=== PATIENT | female | born 1990 | race Caucasian/White ===

== ENCOUNTER 2018-02-12 10:11 | Emergency (ER) | payer OTHER ==
[~2018-02-12] VITALS: Ht 172.7 cm; Wt 143.7 kg
[~2018-02-12 10:11] MED LIST: DIPH1TAB36 PO; OXYC-360 PO; PRENTAB62 PO
[2018-02-12 10:18] VITALS: BP 178/81; PULSE 89; RESP 16; TEMP 99.2; O2SAT 100
[2018-02-12] MEDS ORDERED: SODIUM CHLORIDE 0.9% FLUSH 10 ML FLUSH IVF PRN (10:30)
--- NOTE | 2018-02-12 10:30 | PD ---
HPI Chief Complaint: Cardiac Complaint Time Seen by Provider: 10:21 Travel History International Travel<30 days: No Contact w/Intl Traveler<30days: No Traveled to known affect area: No History of Present Illness HPI 27 y/o female presents with palpitation feeling for the past week and a half. She states no chest pain, shortness of breath or other concurrent complaints. She denies recurrent history of this. She denies specific modifying factors. She states she is currently on her menstrual cycle. She states that she just changed her diet to be low-carb to help regulate her cycle. She denies any increased caffeine use but does have a coffee this morning. Quality is fluttering feeling. She states she just got new insurance and has not had a chance to set up a primary doctor yet. Duration is a week and a half. PFSH Past Medical History Diabetes: No Diminished Hearing: No ?: Not LMP: 02/12/18 Past Surgical History Other Surgery: Yes (FIBROMA REMOVED LR [facility].) Social History Alcohol Use: No Tobacco Use: No Substance Use: No Allergies-Medications (Allergen,Severity, Reaction): Coded Allergies: codeine (Unverified Allergy, Severe, 02/12/18) cefazolin (Unverified Allergy, Intermediate, RASH, 02/12/18) Reported Meds & Prescriptions Reported Meds & Active Scripts Active No Active Prescriptions or Reported Medications Review of Systems Except as stated in HPI: all other systems reviewed are Neg Physical Exam Narrative GENERAL: 27-year-old female in no apparent distress SKIN: Focused skin assessment warm/dry. HEAD: Atraumatic. Normocephalic. EYES: Pupils equal and round. No scleral icterus. No injection or drainage. ENT: No nasal bleeding or discharge. Mucous membranes pink and moist. NECK: Trachea midline. No JVD. CARDIOVASCULAR: Regular rate and rhythm. No murmur appreciated. RESPIRATORY: No accessory muscle use. Clear to auscultation. Breath sounds equal bilaterally. MUSCULOSKELETAL: No obvious deformities. No clubbing. No cyanosis. No edema. NEUROLOGICAL: Awake and alert. No obvious cranial nerve deficits. Motor grossly within normal limits. Normal speech. PSYCHIATRIC: Appropriate mood and affect; insight and judgment normal. Data Data Last Documented VS Vital Signs Date Time Temp Pulse Resp B/P (MAP) Pulse Ox O2 Delivery O2 Flow Rate FiO2 02/12/18 10:45 92 02/12/18 10:45 98 Room Air 02/12/18 10:18 99.2 16 178/81 (113) Orders Orders Electrocardiogram (02/12/18 10:24) Basic Metabolic Panel (Bmp) (02/12/18 10:24) Complete Blood Count With Diff (02/12/18 10:24) Magnesium (Mg) (02/12/18 10:24) Ecg Monitoring (02/12/18 10:24) Iv Access Insert/Monitor (02/12/18 10:24) Oximetry (02/12/18 10:24) Sodium Chloride 0.9% Flush (Ns Flush) (02/12/18 10:30) Potassium Chloride Eff (K-Lyte Cl Eff) (02/12/18 11:15) Ed Discharge Order (02/12/18 11:30) Labs Laboratory Tests Test 02/12/18 10:40 White Blood Count 6.4 TH/MM3 Red Blood Count 5.09 MIL/MM3 Hemoglobin 14.6 GM/DL Hematocrit 44.2 % Mean Corpuscular Volume 86.8 FL Mean Corpuscular Hemoglobin 28.6 PG Mean Corpuscular Hemoglobin Concent 32.9 % Red Cell Distribution Width 12.7 % Platelet Count 199 TH/MM3 Mean Platelet Volume 9.4 FL Neutrophils (%) (Auto) 64.2 % Lymphocytes (%) (Auto) 25.6 % Monocytes (%) (Auto) 7.6 % Eosinophils (%) (Auto) 2.0 % Basophils (%) (Auto) 0.6 % Neutrophils # (Auto) 4.2 TH/MM3 Lymphocytes # (Auto) 1.6 TH/MM3 Monocytes # (Auto) 0.5 TH/MM3 Eosinophils # (Auto) 0.1 TH/MM3 Basophils # (Auto) 0.0 TH/MM3 CBC Comment DIFF FINAL Differential Comment Blood Urea Nitrogen 8 MG/DL Creatinine 0.65 MG/DL Random Glucose 91 MG/DL Calcium Level 8.8 MG/DL Magnesium Level 2.0 MG/DL Sodium Level 137 MEQ/L Potassium Level 3.3 MEQ/L Chloride Level 106 MEQ/L Carbon Dioxide Level 22.5 MEQ/L Anion Gap 9 MEQ/L Estimat Glomerular Filtration Rate 109 ML/MIN MDM Medical Decision Making Medical Screen Exam Complete: Yes Emergency Medical Condition: Yes Medical Record Reviewed: Yes (past history confirmed) Interpretation(s) EKG shows NSR, no ST elevation or depression, and no arrhythmias. No significant T-wave inversions. CBC & BMP Diagram 02/12/18 10:40 Calcium Level 8.8, Magnesium Level 2.0 Differential Diagnosis Electrolyte abnormality, SVT, atrial fibrillation Narrative Course Will check blood work, EKG and reevaluate. Patient has mild hypokalemia which was replaced. She recommended patient set up primary care follow-up for additional testing as an outpatient. She is in agreement to this. She denies any new complaints and states that they are feeling better. all questions answered. She knows that follow up is incumbent on them and to return to the emergency room immediately if new or worsening symptoms develop. She was given strict return precautions, vitals reviewed and are normal, agrees to further workup as an outpatient. Diagnosis Primary Impression: Palpitations Additional Impression: Hypokalemia Patient Instructions: General Instructions Additional Instructions: return as needed, follow with primary this week Med/Other Pt SpecificInfo: No Change to Meds Scripts No Active Prescriptions or Reported Meds Disposition: 01 DISCHARGE HOME Condition: Stable Sophy Sharma MD Feb 12, 2018 10:30
[2018-02-12 10:45] VITALS: O2SAT 98
[2018-02-12 10:53] LABS: AUTOMATED NEUTROPHIL # 4.2 TH/MM3 (1.8-7.7); BASOPHIL % 0.6 % (0.0-2.0); EOSINOPHIL # 0.1 TH/MM3 (0-0.4); HEMATOCRIT 44.2 % (35.0-46.0); HEMOGLOBIN 14.6 GM/DL (11.6-15.3); LYMPH % 25.6 % (9.0-44.0); LYMPHOCYTE # 1.6 TH/MM3 (1.0-4.8); MEAN CELL VOLUME 86.8 FL (80.0-100.0); MEAN CORPUSCULAR HEMOGLOBIN 28.6 PG (27.0-34.0); MEAN CORPUSCULAR HGB CONC 32.9 % (32.0-36.0); MEAN PLATELET VOLUME 9.4 FL (7.0-11.0); MONO % 7.6 % (0.0-8.0); MONOCYTE # 0.5 TH/MM3 (0-0.9); NEUT % 64.2 % (16.0-70.0); PLATELET COUNT 199 TH/MM3 (150-450); RED BLOOD COUNT 5.09 MIL/MM3 (4.00-5.30); RED CELL DISTRIBUTION WIDTH 12.7 % (11.6-17.2); WHITE BLOOD COUNT 6.4 TH/MM3 (4.0-11.0)
[2018-02-12 11:04] LABS: CALCIUM 8.8 MG/DL (8.5-10.1)
[2018-02-12 11:05] LABS: BICARBONATE 22.5 MEQ/L (21.0-32.0)
[2018-02-12 11:08] LABS: CREATININE 0.65 MG/DL (0.50-1.00)
[2018-02-12] MEDS ORDERED: POTASSIUM CHLORIDE 25 MEQ EFFERVESCENT TAB PO ONE (11:15)
--- NOTE | 2018-02-13 23:08 | EKG ---
Date Performed: 02/12/2018 Time Performed: 10:35:39 PTAGE: 27 years EKG: Sinus rhythm NORMAL ECG NO PREVIOUS TRACING DOCTOR: Scout Contreras Interpretating Date/Time 02/13/2018 23:07:53
== END 2018-02-12 12:12 | disposition home or self-care (01) ==
LOC: PHED 10:11
DX: R00.2 Palpitations (principal); E87.6 Hypokalemia
CPT/HCPCS: 80048; 83735; 85025; 93005; 99284